=== PATIENT | female | born 1980 | race Hispanic/Latino ===

== ENCOUNTER 2019-10-04 18:14 | Emergency (ER) | payer OTHER | END 2019-10-04 18:59 | disposition home or self-care (01) | LOC: EDH 18:14 | DX: F41.1 Generalized anxiety disorder (principal); M54.6 Pain in thoracic spine; Z87.891 Personal history of nicotine dependence; Z98.890 Other specified postprocedural states ==

== ENCOUNTER 2020-09-30 02:04 | Emergency (ER) | payer OTHER ==
[2020-09-30 02:35] LABS: APPEARANCE,URINE Clear (CLEAR); BILIRUBIN,URINE Negative (NEGATIVE); COLOR,URINE Yellow (YELLOW); GLUCOSE, URINE (UA) Negative (NEGATIVE); KETONES,URINE Trace mg/dL (NEGATIVE); LEUKOCYTE ESTERASE ,URINE Small (NEGATIVE); NITRATE,URINE Negative (NEGATIVE); OCCULT BLOOD,URINE Negative (NEGATIVE); PH,URINE 6.5 (5.0-8.0); PROTEIN,URINE Negative (NEGATIVE)
[2020-09-30 02:36] LABS: BASOPHILS % (AUTO) 0.7 % (0.0-5.0); HEMATOCRIT 42.8 % (36-48); LYMPHOCYTES % (AUTO) 44.5 % (21.0-51.0); MEAN CORPUSCULAR HEMOGLOBIN 29.7 pg (27.0-33.0); MEAN CORPUSCULAR HGB CONC 33.4 g/dL (32.0-36.0); MEAN CORPUSCULAR VOLUME 88.8 fL (79-99); MONOCYTES % (AUTO) 6.2 % (3.0-13.0); NEUTROPHILS % (AUTO) 45.4 % (40.0-77.0); PLATELET COUNT (AUTO) 332 K/uL (130-400); RED BLOOD CELL COUNT(AUTO) 4.82 MIL/uL (4.00-5.50); RED CELL DISTRIBUTION WIDTH 12.6 % (11.0-15.5)
[2020-09-30 02:37] LABS: HCG,QUAL RESULT NEGATIVE (NEGATIVE)
[2020-09-30 02:43] LABS: AMPHET/METH SCREEN,URINE NEGATIVE (NEGATIVE); BARBITURATE SCREEN, URINE NEGATIVE (NEGATIVE); BENZODIAZEPINES SCREEN,URINE NEGATIVE (NEGATIVE); CANNABINOID SCREEN,URINE POSITIVE (NEGATIVE); COCAINE SCREEN,URINE NEGATIVE (NEGATIVE); OPIATE SCREEN,URINE NEGATIVE (NEGATIVE); PHENCYCLIDINE SCREEN,URINE NEGATIVE (NEGATIVE)
[2020-09-30 02:46] LABS: CREATININE 1.1 mg/dL (0.5-1.5); POTASSIUM 3.3 mmol/L (3.5-5.1)
[2020-09-30 02:51] LABS: ALBUMIN 3.4 g/dL (3.5-5.0); BILIRUBIN,TOTAL 0.5 mg/dL (0.2-1.0); TOTAL PROTEIN, SERUM 6.9 g/dL (6.0-8.3)
[2020-09-30] MEDS ORDERED: LORAZEPAM 2 MG/ML 1 ML VIAL ONE (02:59)
[2020-09-30] MEDS ORDERED: SODIUM CHLORIDE 0.9% 1000ML 1,000 ML IV ONE (02:59)
== END 2020-09-30 04:27 | disposition home or self-care (01) ==
LOC: EDH 02:04
DX: F41.9 Anxiety disorder, unspecified (principal); Z98.890 Other specified postprocedural states
CPT/HCPCS: 36415; 80053; 80305; 81003; 81025; 85025; 85378; 93005; 96361; 96374; 99284; J2060; J7030

== ENCOUNTER 2024-06-22 13:28 | Emergency (ER) | payer SELFPAY ==
[~2024-06-22] VITALS: Ht 152.4 cm; Wt 78.9 kg
--- NOTE | 2024-06-22 14:24 | EKG ---
[facility] Test Date: 2024-06-22 Test Time: 14:20:50 Pat Name: DASHAWN MARINELLI Department: [facility] Room: Gender: F Classroom Instructional Aide: [facility] : 1980 Requested By: CLARY SNACHEZ Order Number: [id number] Reading MD: Pablo Chowdhury Measurements Intervals [place] Rate: 87 P: 51 NH: 132 QRS: 29 QRSD: 98 T: 38 QT: 382 QTc: 461 Interpretive Statements Sinus rhythm Compared to ECG 09/30/2020 02:03:06 Sinus arrhythmia no longer present Electronically Signed On 06-23-2024 14:56:12 ADMINISTRATION PHYSICIAN by Pablo Chowdhury Please click the below link to view image of tracing.
[2024-06-22 15:15] LABS: BASOPHILS # (AUTO) 0.09 K/uL (0.00-0.20); BASOPHILS % (AUTO) 0.8 % (0.0-5.0); HEMATOCRIT 49.2 % (36-48); IMMATURE GRANULOCYTE ABSOLUTE 0.04 K/uL (0-1); LYMPHOCYTES % (AUTO) 18.9 % (21.0-51.0); MEAN CORPUSCULAR HEMOGLOBIN 28.1 pg (27.0-33.0); MEAN CORPUSCULAR HGB CONC 32.7 g/dL (32.0-36.0); MONOCYTES # (AUTO) 0.5 K/uL (0.1-1.0); MONOCYTES % (AUTO) 4.8 % (3.0-13.0); NEUTROPHILS % (AUTO) 75.1 % (40.0-77.0); PLATELET COUNT (AUTO) 397 K/uL (130-400); RED BLOOD CELL COUNT(AUTO) 5.72 MIL/uL (4.00-5.50); RED CELL DISTRIBUTION WIDTH 12.3 % (11.0-15.5); WHITE BLOOD COUNT (AUTO) 10.7 K/uL (4.8-10.8)
[2024-06-22 15:26] LABS: CREATININE 1.1 mg/dL (0.5-1.0); POTASSIUM 3.5 mmol/L (3.5-5.1)
[2024-06-22 15:36] LABS: APPEARANCE,URINE CLEAR (CLEAR); BILIRUBIN,URINE NEGATIVE (NEGATIVE); COLOR,URINE YELLOW (YELLOW); GLUCOSE, URINE (UA) NEGATIVE (NEGATIVE); KETONES,URINE NEGATIVE (NEGATIVE); LEUKOCYTE ESTERASE ,URINE NEGATIVE Leu/uL (NEGATIVE); NITRATE,URINE NEGATIVE (NEGATIVE); OCCULT BLOOD,URINE NEGATIVE (NEGATIVE); PH,URINE 5.5 (5.0-8.0); PROTEIN,URINE 20 mg/dL (NEGATIVE); UROBILINOGEN,URINE 0.2 mg/dL (0.2-1.0)
[2024-06-22 15:37] LABS: ADD UA MICROSCOPIC YES
[2024-06-22 15:39] LABS: MAGNESIUM 2.2 mg/dL (1.80-2.40); THYROID STIMULATING HORMONE 1.67 uIU/mL (0.36-3.74)
[2024-06-22 15:41] LABS: MUCUS,URINE FEW LPF (None Seen); RBC,URINE 0-1 /HPF (0-1); SQUAMOUS EPITHELIAL CELL,UR RARE /HPF (0-2); WBC,URINE 0-1 /HPF (0-1)
[2024-06-22 15:49] LABS: AMPHET/METH SCREEN,URINE NEGATIVE (NEGATIVE); BARBITURATE SCREEN, URINE NEGATIVE (NEGATIVE); BENZODIAZEPINES SCREEN,URINE NEGATIVE (NEGATIVE); CANNABINOID SCREEN,URINE POSITIVE (NEGATIVE); COCAINE SCREEN,URINE NEGATIVE (NEGATIVE); OPIATE SCREEN,URINE NEGATIVE (NEGATIVE); PHENCYCLIDINE SCREEN,URINE NEGATIVE (NEGATIVE)
--- NOTE | 2024-06-22 15:55 | HMCIMG ---
Exam Type: CHEST 1VW Clinical Information: palpitations Comparison: None Findings: The lungs are clear of infiltrates. The heart is normal in size. The bony and soft tissue structures of the chest are unremarkable. Impression: Clear lungs.
--- NOTE | 2024-06-22 17:00 | ERN ---
General Chief Complaint: Palpitations Stated Complaint: PALPITATIONS,MULTIPLE COMPLAINTS Time Seen by MD: 13:28 Time Seen by Midlevel: 13:28 Source: patient History of Present Illness Initial Comments Patient is a 43-year-old female with a past medical history of anxiety and hypertension presenting to the emergency department with palpitations. The patient states the palpitations are intermittent in nature. She does report similar episodes in the past. She was previously seen by jockey agent proximally 5-6 years ago where she had a Holter monitor placed but all of her workup came back normal. She states these episodes happened sporadically but over the last week they have been increasing in intensity. She currently denies any chest pain. Allergies: Coded Allergies: No Known Drug Allergies (Unverified Allergy, Unknown, 10/04/19) Past Medical History Past Medical History: Anxiety, Hypertension Past Surgical History: ROS Dictation CONSTITUTIONAL: Negative except for HPI HEAD/FACE: Negative except for HPI EENT: Negative except for HPI RESPIRATORY: Negative except for HPI GASTROINTESTINAL/ABDOMINAL: Negative except for HPI GENITOURINARY: Negative except for HPI MUSCULOSKELETAL: Negative except for HPI INTEGUMENTARY: Negative except for HPI NEUROLOGICAL/PSYCH: Negative except for HPI HEMATOLOGIC/LYMPHATIC: Negative except for HPI All Systems Negative, Except as noted above. 13 point review of systems assessed and all negative except for above. Physical Exam Physical Exam Dictation Vital Signs reviewed General Appearance: Alert, oriented x 3, no acute distress, well developed, nou rished. Head and Face: non-traumatic. Eyes: PERRL, pink conjunctivas, eyelid no trauma, anterior chamber with arcus senilis. Ears: Pinnas intact and no signs of trauma or erythema ear canals clear and no discharge TM no erythema Nose: No discharge, no bleeding. Oropharynx: Mouth normal, tongue pink, pharynx clear,no erythema, tonsils no exudates, no abscesses noted, mucous me mbrane moist Neck: Supple, non-tender, no thyromegaly, no masses, no JVD, no bruits Breast:Deferred Chest:No tenderness, no crepitus, no paradoxical movement, no retractions Lungs:Clear, well-ventilated, symmetric, no rales, no wheezing, no rhonchi, no stridor, good breath sounds bilaterally Heart: Regular rate, regular rhythm, no murmur, no gallops Vascular: no peripheral edema, Abdomen: Soft, positive bowel sounds, nondistended, no guarding, nontender, no rebound, no masses no hepatomegaly, no splenomegaly, no Parker's sign, no hernias. Rectal: Deferred Genital: Deferred Neurological: Normal speech, motor function intact, sensory function intact Musculoskeletal: Neck nontender, full range of motion, back nontender, full range of motion, Extremities: nontender, full range of motion Skin: Color pink, dry, no turgor, no rash, no lacerations, no abrasions, no contusions. Lymphatic: Deferred Results Laboratory and Microbiology Lab and Micro Result Laboratory Tests Test 06/22/24 15:05 06/22/24 15:20 White Blood Count 10.7 K/uL (4.8-10.8) Red Blood Count 5.72 MIL/uL (4.00-5.50) H Hemoglobin 16.1 g/dL (12.0-16.0) H Hematocrit 49.2 % (36-48) H Mean Corpuscular Volume 86.0 fL (79-99) Mean Corpuscular Hemoglobin 28.1 pg (27.0-33.0) Mean Corpuscular Hemoglobin Concent 32.7 g/dL (32.0-36.0) Red Cell Distribution Width 12.3 % (11.0-15.5) Platelet Count 397 K/uL (130-400) Mean Platelet Volume 8.6 fL (7.5-10.5) Immature Granulocyte % (Auto) 0.4 % (0-1) Neutrophils (%) (Auto) 75.1 % (40.0-77.0) Lymphocytes (%) (Auto) 18.9 % (21.0-51.0) L Monocytes (%) (Auto) 4.8 % (3.0-13.0) Eosinophils (%) (Auto) 0.0 % (0.0-8.0) Basophils (%) (Auto) 0.8 % (0.0-5.0) Neutrophils # (Auto) 8.0 K/uL (1.8-7.7) H Lymphocytes # (Auto) 2.0 K/uL (1.0-4.8) Monocytes # (Auto) 0.5 K/uL (0.1-1.0) Eosinophils # (Auto) 0.00 K/uL (0.00-0.70) Basophils # (Auto) 0.09 K/uL (0.00-0.20) Absolute Immature Granulocyte (auto 0.04 K/uL (0-1) Nucleated Red Blood Cells 0.0 % (0.0-0.19) Sodium Level 139 mmol/L (136-145) Potassium Level 3.5 mmol/L (3.5-5.1) Chloride Level 99 mmol/L (101-111) L Carbon Dioxide Level 31 mmol/L (21-32) Blood Urea Nitrogen 13 mg/dL (7-18) Creatinine 1.1 mg/dL (0.5-1.0) H Glomerular Filtration Rate Calc 64 mL/min (>90) Random Glucose 115 mg/dL (70-105) H Total Calcium 9.1 mg/dL (8.5-10.1) Magnesium Level 2.20 mg/dL (1.80-2.40) Total Creatine Kinase 129 U/L (21-232) Troponin I High Sensitivity < 4 ng/L (4-50) L Thyroid Stimulating Hormone (TSH) 1.67 uIU/mL (0.36-3.74) Serum Test, Qualitative NEGATIVE (NEGATIVE) Urine Color YELLOW (YELLOW) Urine Appearance CLEAR (CLEAR) Urine pH 5.5 (5.0-8.0) Urine Specific [place] 1.025 (1.001-1.031) Urine Protein 20 mg/dL (NEGATIVE) H Urine Glucose (UA) NEGATIVE mg/dL (NEGATIVE) Urine Ketones NEGATIVE mg/dL (NEGATIVE) Urine Occult Blood NEGATIVE (NEGATIVE) Urine Nitrate NEGATIVE (NEGATIVE) Urine Bilirubin NEGATIVE mg/dL (NEGATIVE) Urine Urobilinogen 0.2 mg/dL (0.2-1.0) Urine Leukocyte Esterase NEGATIVE [place]/uL Urine RBC 0-1 /HPF (0-1) Urine WBC 0-1 /HPF (0-1) Urine Squamous Epithelial Cells RARE /HPF (0-2) Urine Bacteria None /HPF (None Seen) Urine Opiates Screen NEGATIVE (NEGATIVE) Urine Barbiturates Screen NEGATIVE (NEGATIVE) Urine Phencyclidine Screen NEGATIVE (NEGATIVE) Urine Amphetamines Screen NEGATIVE (NEGATIVE) Urine Benzodiazepines Screen NEGATIVE (NEGATIVE) Urine Cocaine Screen NEGATIVE (NEGATIVE) Urine Marijuana (THC) Screen POSITIVE (NEGATIVE) H Labs Reviewed?: Yes EKG/XRAY/US/CT/MRI EKG Comment Date: June 22, 2024 Time: 1420 Ventricular rate: 87 MI interval: 132 QRS duration: 98 QT/QTc: 382/461 EKG interpretation: Normal sinus rhythm with a ventricular rate of 87 beats per minute, no ST elevation, no bundle branch blocks, Reviewed by ED Attending CHRISTOPHER MDM: Patient is a 43-year-old female with a past medical history of anxiety and hypertension presenting to the emergency department with palpitations. The patient states the palpitations are intermittent in nature. She does report similar episodes in the past. She was previously seen by jockey agent approximately 5-6 years ago where she had a Holter monitor placed but all of her workup came back normal. She states these episodes happened sporadically but over the last week they have been increasing in intensity. She currently chest pain, nausea, vomiting, or any other symptoms at this time. Initial vital signs reveal a heart rate at 113 with a blood pressure of 161/95. On physical examination patient is in no acute respiratory distress. O2 saturation is 100% on room air. CBC shows no leukocytosis with a normal white blood cell count of 10.7. Hemoglobin is stable at 16.1. Platelets are normal at 397. Chemistries are stable. CK is normal at 129. Troponin is negative. TSH is within normal ranges for thyroidism less likely. test was negative. Urinalysis not show any evidence of infection. Urine drug screen is remarkable for marijuana. Chest x-ray does not show any acute cardiopulmonary abnormality. EKG shows a ventricular rate of 87 beats per minute. EKGs normal sinus rhythm with no ST elevations or bundle branch blocks. EKG does not show any right ventricular strain pattern or right axis deviation. Patient was observed in the ER for 2 hours and has remained stable and asymptomatic. Patient will be discharged home with outpatient follow up with Cardiology. Differential diagnosis: Anxiety, ACS, electrolyte abnormality, dehydration, substance abuse There are no social concerns with this patient. Prescription drug management Prescriptions will include: None Medical management and examination interpretation discussions were had by me with other qualified healthcare professionals as indicated for the patient's care. ED Course Orders Procedure Category Date Status Time 12 Lead Ekg Tracing- EKG 06/22/24 Complete Technical 14:02 Cbc With Differential LAB 06/22/24 Complete 14:02 Basic Metabolic Panel LAB 06/22/24 Complete 14:02 Creatine Kinase, Total LAB 06/22/24 Complete 14:02 Magnesium LAB 06/22/24 Complete 14:02 Urinalysis Profile LAB 06/22/24 Complete 14:02 Drug Screen Urine LAB 06/22/24 Complete 14:02 Chest 1vw RAD 06/22/24 Resulted 14:02 Thyroid Stimulating LAB 06/22/24 Complete Hormone 14:02 Testing, LAB 06/22/24 Complete Serum Hcg 14:02 Troponin I High LAB 06/22/24 Complete Sensitivity 16:19 Vital Signs Date Time Temp Pulse Resp B/P (MAP) Pulse Ox O2 Delivery O2 Flow Rate FiO2 06/22/24 15:25 97.9 113 16 161/95 99 Room Air* 0 21 06/22/24 13:57 97.9 113 16 161/95 99 Room Air 0 HEART Score Response (Comments) Value History: Low suspicion (0) 0 EKG: Normal 0 Age: < 45yrs (0) 0 Risk Factors: 1-2 risk factors (+1) 1 Initial Troponin: Normal limit (0) 0 HEART Score Risk: Low Risk for MACE (1-3) Total 1 DX & DISP Disposition: Discharge Departure Impression: Primary Impression: Palpitations Condition: Stable Additional Instructions: Your blood work today is unremarkable. There was no evidence of systemic infection. Your electrolytes are normal. Your cardiac enzymes are negative. Your thyroid levels are within normal ranges. Your test was negative. Your urinalysis does not show any evidence of infection. Your EKG shows no signs of heart attack. . You will need to follow up with Cardiology outpatient for further evaluation. Referrals: NONE (PCP) I have reviewed the case, and I agree with, Diagnosis and Plan I performed the substantive portion of the visit. I have reviewed and personally made and approve the management plan that is documented in the note by myself or the CHRISSY. I acknowledge for responsibility for the patient's management plan. CLARY SANCHEZ Jun 22, 2024 16:59
[2024-06-22 17:38] VITALS: BP 145/84; PULSE 92; RESP 16; TEMP 97.9; O2SAT 99
== END 2024-06-22 17:47 | disposition home or self-care (01) ==
LOC: EDH 13:28
DX: R00.2 Palpitations (principal); I10 Essential (primary) hypertension; F41.9 Anxiety disorder, unspecified
CPT/HCPCS: 36415; 71045; 80048; 80305; 81001; 82550; 83735; 84443; 84484; 84703; 85025; 93005; 99285